=== PATIENT | male | born 1990 | race Two or more races ===

== ENCOUNTER 2024-06-22 20:43 | Emergency (ER) | payer SELFPAY ==
[~2024-06-22] VITALS: Ht 180.3 cm; Wt 86.4 kg
[2024-06-22 20:50] VITALS: BP 149/55; PULSE 68; RESP 20; TEMP 98.1; O2SAT 99
== END 2024-06-22 21:44 | disposition left against medical advice (07) ==
LOC: EMS 20:43
DX: S01.452A Open bite of left cheek and temporomandibular area, initial encounter (principal); Z53.21 Procedure and treatment not carried out due to patient leaving prior to being seen by health care provider; W54.0XXA Bitten by dog, initial encounter; Y93.89 Activity, other specified; Y92.89 Other specified places as the place of occurrence of the external cause; Y99.8 Other external cause status